=== PATIENT | male | born 1970 | race Caucasian/White ===

== ENCOUNTER 2018-01-03 11:10 | Outpatient (CLI) | payer OTHER, SELFPAY ==
[2018-01-06 10:05] LABS: PSA, Screening 1.1 ng/ml (0-2.5)
== END 2018-01-03 11:30 ==
PROVIDERS: PCP Family Medicine; Visit Provider Family Medicine
DX: Z12.5 Encounter for screening for malignant neoplasm of prostate (principal)
CPT/HCPCS: 36415; 84153

== ENCOUNTER 2018-12-29 07:00 | Outpatient (CLI) | payer OTHER, SELFPAY ==
[2018-12-29 13:36] LABS: BUN 18 mg/dL (7-18); CREATININE 1.01 mg/dL (0.70-1.30); Calculated LDL 110 mg/dL; Chloride 103 mmol/L (98-107); Cholesterol 182 mg/dL (50-200); Glucose 90 mg/dL (70-100); HDL Cholesterol 55 mg/dL (40-60); Potassium 4.8 mmol/L (3.5-5.1); Sodium 141 mmol/L (136-145); Triglyceride 88 mg/dL (30-150)
[2018-12-30 10:01] LABS: PSA, Screening 1.5 ng/ml (0-2.5)
== END 2018-12-29 07:20 ==
PROVIDERS: PCP Family Medicine
DX: Z00.00 Encounter for general adult medical examination without abnormal findings (principal); I10 Essential (primary) hypertension; Z80.42 Family history of malignant neoplasm of prostate; Z12.5 Encounter for screening for malignant neoplasm of prostate
CPT/HCPCS: 36415; 80048; 80061; 84153

== ENCOUNTER 2019-06-01 08:02 | Day surgery (SDC) | payer OTHER, SELFPAY ==
--- NOTE | 2019-06-01 06:46 | W.COLOREPORT ---
Date of service: 06/01/19 Time of Service: :30 Colonoscopy Report Date of procedure: 06/01/19 Pre-op diagnosis general: Colon Cancer Screening Post-op diagnosis procedure note: other (colorectal polyps) Procedure: Colonoscopy with polypectomy Surgeon: Amie Mayer Anesthesia proc note operative: other (General/ ASA 2/Kym Meyer CRNA ) Estimated blood loss (mL): 3 Pathology: other (Cecal polyp, transverse polyp x2, sigmoid polyp) Complications: None Disposition: same day Indications: 48 y/o male with history of anxiety presents for his first colonoscopy screening pre-op. He denies a family history of colon cancer. He denies any changes in bowel habits including bloody or black tarry stools, abdominal pain, diarrhea or constipation. He denies constitutional symptoms. Denies use of marijuana or any other recreational or illegal drugs. Risks, benefits and complications have been reviewed. Complications include but are not limited to bleeding, pain, perforation, missed small lesion/polyp, sore throat, aspiration and adverse reaction to the medications. Questions were entertained and answered to their satisfaction and they wished to proceed. No guarantees were given or implied. Prep: Miralax/Dulcolax Procedure Start Time: :30 Procedure End Time: :57 Retraction Time: 21 minutes Findings: 4 small polyps Procedure Description: After informed consent was obtained the patient was taken to the procedure room and placed in a left decubitous position. Monitors were applied and a time out was done. The patients name, date of , procedure, allergies to medications and metal in their body was reviewed. The patient was then sedated. Once sedated and comfortable a rectal exam was done. External exam was normal. Internal exam revealed a normal sphincter tone and no palpable masses. The prostate felt smooth. The scope was then introduced and retro-flexed. No internal hemorrhoids were identified. The scope was then advanced to the cecum without difficulty. The TI and appendiceal orifice were identified. The prep was adequate. The scope was then slowly retracted over 21 minutes back into the rectum. Polyps were removed with cold forceps in the cecum x1, Transverse colon x2 and sigmoid colon x1. There were no diverticula noted. The scope was removed and the patient was woken up and taken back to Same day surgery in stable condition. The patient tolerated the procedure well and there were no immediate complications. Follow up: The patient should follow up in 3-5 years unless they develop changes in bowel habits or other new gastrointestinal complaints.
--- NOTE | 2019-06-01 06:47 | W.PM.DSUDISC ---
Discharge Plan Disposition Patient Disposition: HOME Condition: Good Discharge Details Reason For Visit: SCREENING Attending Provider: Amie Mayer Primary Care Provider: Mohit Collins Home Meds and New Rx's Prescriptions: Continued triamcinolone acetonide [Nasacort] 55 mcg aerosol,spray 2 spray ARIC DAILY Qty: 50.7 RF: 3 triamcinolone acetonide 15 GM cream 1 cate Topical DAILY PRN Qty: 3 RF: 0 ascorbic acid (vitamin C) [Vitamin C] 500 MG tablet 500 mg PO DAILY RF: 0 CENTRUM TABLET 1 EACH tablet 1 tab PO DAILY RF: 0 fluocinonide 30 GM cream 1 cate Topical BID PRNQty: 30 RF: 1 gabapentin 300 MG capsule 300 mg PO TID PRN Qty: 90 RF: 4 clonazepam [Klonopin] 1 mg tablet 1 mg PO daily prn Qty: 90 RF: 1 Hold Instructions: Home Medication placed on hold at Doctor's office Discontinued polyethylene glycol 3350 17 gram/dose powder 238 g PO ONCE Qty: 238 RF: 0 bisacodyl [Dulcolax (bisacodyl)] 5 mg tablet,delayed release (DR/EC) 5 mg PO ONCE Qty: 4 RF: 0 Discharge Instructions Instructions: Colorectal Polyps (GEN) Additional Instructions: Findings: 4 polyps Follow up: 3-5 years Please call if you develop: fevers >101.5 Nausea or Vomiting Abdominal pain that is not transient DAY SURGERY UNIT POST ENDOSCOPY INSTRUCTIONS 1. Because there will be medication in your system for the next 24 hours, you may feel a little sleepy. Your coordination will be affected. Therefore: a. Do not drive or operate dangerous equipment for 24 hours. b. Do not drink alcohol beverages for 24 hours (not even beer). c. Plan to go home and rest for the day. 2. Generally there are no restrictions on your activity after a day or so has gone by, but you may feel a bit fatigued for a few days. 3 After you arrive home you may have a light meal and return to a normal diet as you can tolerate it without feeling sick to your stomach. 4. After surgery, you may feel pain or discomfort. This should be only transient, but if it persists please contact your doctor. 5. If there are any questions regarding the findings of your procedure, please feel free to contact your doctor. 6. If you are unable to contact your doctor with a problem, contact the [facility] at [phone]. 1. Continue all your regular medications unless directed otherwise. I understand the above instructions and have no questions. Signature of Patient or Responsible Adult Escort Date/Time Name of Responsible Adult Escort Signature of Nurse Date/Time Activity:: Activity as Tolerated Diet:: As Tolerated Discharge Orders Discharge Orders: Discharge Order (Routine); Ordered 06/01/19 Ordered By: Amie Mayer
[2019-06-01 08:15] VITALS: BP 100/70; PULSE 96; RESP 16; TEMP 36.5; O2SAT 97
[2019-06-01] MEDS: Lactated Ringers 1,000 ML 80 ML IV (08:38)
--- NOTE | 2019-06-01 09:37 | BOWEL_PTH ---
PATIENT: David Gunter LOC: [facility] U#:[id number] AGE/SX: 49/M ROOM: RE06/01/[address]: Amie Mayer MD : 1970 BED: DIS: 06/01/2019 SPEC #: [id number] RECD: 06/01/19 12:36 STATUS: ART RE #: [id number] BONNIE: 06/01/19 09:[address]: Amie Mayer DEPT: Surgical Specimen RECD BY: Vanesa Zuniga ENTERED: 06/01/19 12:37 SP TYPE: Bowel OTHR DR: Mohit Collins MD Tissues: 1 - BIOPSY BOWEL 2 - BIOPSY BOWEL 3 - BIOPSY BOWEL Procedures: GROSS AND MICRO LEVEL 4 Comments: [id number]
[2019-06-01 10:31] VITALS: BP 117/88; PULSE 71; RESP 16; TEMP 36.6; O2SAT 99
== END 2019-06-01 10:51 | disposition home or self-care (01) ==
LOC: SUR 08:04
PROVIDERS: PCP Family Medicine; Visit Provider Surgery
PROC: 0DJD8ZZ Inspection of Lower Intestinal Tract, Via Natural or Artificial Opening Endoscopic (ICD-10-PCS; CPT 45378; principal; 2019-06-01 09:15)
DX: Z12.11 Encounter for screening for malignant neoplasm of colon (principal); D12.0 Benign neoplasm of cecum; D12.3 Benign neoplasm of transverse colon; K63.5 Polyp of colon
CPT/HCPCS: 45380; 88305

== ENCOUNTER 2020-01-14 04:01 | Outpatient (CLI) | payer OTHER, SELFPAY ==
[2020-01-14 16:17] LABS: Anion Gap 5.8 mmol/L (3-11); BUN 17 mg/dL (7-18); CO2 29.2 mmol/L (21.0-32.0); CREATININE 1.05 mg/dL (0.70-1.30); Calcium 9.7 mg/dL (8.5-10.1); Chloride 103 mmol/L (98-107); Glucose 88 mg/dL (74-106); Potassium 4.5 mmol/L (3.5-5.1); Sodium 138 mmol/L (136-145)
[2020-01-14 22:53] LABS: PSA, Screening 1.5 ng/mL (0.0-3.5)
== END 2020-01-14 04:21 ==
DX: Z00.00 Encounter for general adult medical examination without abnormal findings (principal); Z13.228 Encounter for screening for other metabolic disorders; Z12.5 Encounter for screening for malignant neoplasm of prostate; Z80.42 Family history of malignant neoplasm of prostate
CPT/HCPCS: 36415; 80048; 84153

== ENCOUNTER 2020-02-05 17:08 | Outpatient (REF) | payer OTHER, SELFPAY ==
[2020-02-10 01:51] LABS: Patient Race White; SARS-CoV-2 RNA Undetected (Undetected); SARS-CoV-2 Specimen Source Nasal
== END 2020-02-05 17:28 ==
LOC: LBN 17:08
PROVIDERS: Visit Provider Nurse Practitioner Family
DX: J06.9 Acute upper respiratory infection, unspecified (principal)
CPT/HCPCS: U0003

== ENCOUNTER 2020-05-17 17:46 | Outpatient (REF) | payer OTHER, SELFPAY ==
[2020-05-19 11:32] LABS: COVID-19 RT-PCR UVMMC Result Negative (Negative)
== END 2020-05-17 17:47 | disposition home or self-care (01) ==
LOC: LBN 17:46
PROVIDERS: Visit Provider Physician Assistant
DX: Z20.828 Contact with and (suspected) exposure to other viral communicable diseases (principal)
CPT/HCPCS: U0003

== ENCOUNTER 2020-05-18 19:17 | Outpatient (CLI) | payer OTHER, SELFPAY ==
--- NOTE | 2020-05-18 10:30 | DI.RAD_ITS ---
EXAM: XR CHEST 2V PA LATERAL CLINICAL HISTORY: cough x two weeks r/o pneumonia, R05. TECHNIQUE: 2D digital imaging was performed. COMPARISON: No exams were available for comparison FINDINGS: Heart size is normal. The mediastinum is not widened. There is bilateral hyperinflation. No infiltrates nor pleural effusions. No pulmonary edema. No pn eumothorax. IMPRESSION: No acute pulmonary findings.Inflation noted. DATA REPOSITORY: RADIATION DOSE DELIVERED:
== END 2020-05-18 19:18 ==
LOC: DI 19:17
PROVIDERS: Visit Provider Physician Assistant
DX: R05 Cough (principal)
CPT/HCPCS: 71046

== ENCOUNTER 2021-01-10 08:01 | Outpatient (CLI) | payer OTHER, SELFPAY ==
[2021-01-10 12:37] LABS: ALT 25 U/L (16-63); AST 10 U/L (15-37); Albumin 4.3 g/dL (3.4-5.0); Alkaline Phosphatase 60 U/L (46-116); Anion Gap 7.1 mmol/L (3-11); BUN 13 mg/dL (7-18); Bilirubin, Total 0.5 mg/dL (0.2-1.0); CO2 30.9 mmol/L (21.0-32.0); Calcium 9.7 mg/dL (8.5-10.1); Chloride 104 mmol/L (98-107); Glucose 93 mg/dL (74-106); Potassium 4.6 mmol/L (3.5-5.1); Sodium 142 mmol/L (136-145); Total Protein 7.2 g/dL (6.4-8.2)
[2021-01-10 17:57] LABS: PSA, Screening 1.6 ng/mL (0.0-3.5)
== END 2021-01-10 08:02 | disposition home or self-care (01) ==
DX: Z00.00 Encounter for general adult medical examination without abnormal findings (principal); Z12.5 Encounter for screening for malignant neoplasm of prostate; Z80.42 Family history of malignant neoplasm of prostate
CPT/HCPCS: 36415; 80053; 84153

== ENCOUNTER 2022-11-19 02:43 | Outpatient (CLI) | payer OTHER, SELFPAY ==
[2022-11-19 16:52] LABS: ALT 24 U/L (16-63); AST 14 U/L (15-37); Alkaline Phosphatase 63 U/L (46-116); Anion Gap 10.3 mmol/L (3-11); BUN 18 mg/dL (7-18); Bilirubin, Total 0.6 mg/dL (0.2-1.0); CO2 26.7 mmol/L (21.0-32.0); CREATININE 1.1 mg/dL (0.70-1.30); Calcium 9.3 mg/dL (8.5-10.1); Calculated LDL 121 mg/dL (<100); Chloride 102 mmol/L (98-107); Cholesterol 193 mg/dL (<200); Estimated GFR 80.27 (mL/min/1.73m2); Glucose 90 mg/dL (74-106); HDL Cholesterol 49 mg/dL (40-60); Potassium 3.9 mmol/L (3.5-5.1); Sodium 139 mmol/L (136-145); Total Protein 7.2 g/dL (6.4-8.2); Triglyceride 116 mg/dL (<150)
[2022-11-19 22:31] LABS: PSA, Screening 1.5 ng/mL (<=3.5)
[2022-11-20 10:23] LABS: HIV-1/2 Ag & Ab Screen Negative (Negative)
[2022-11-20 10:43] LABS: Hepatitis C Ab w Rflx HCV PCR Negative (Negative)
== END 2022-11-19 02:44 | disposition home or self-care (01) ==
LOC: LBO 02:43
PROVIDERS: PCP Nurse Practitioner Family; Visit Provider Nurse Practitioner Family
DX: Z13.220 Encounter for screening for lipoid disorders (principal); Z11.59 Encounter for screening for other viral diseases; Z11.4 Encounter for screening for human immunodeficiency virus [HIV]; Z12.5 Encounter for screening for malignant neoplasm of prostate
CPT/HCPCS: 36415; 80053; 80061; 84153; 86803; 87389

== ENCOUNTER 2023-01-21 10:36 | Day surgery (SDC) | payer OTHER, SELFPAY ==
--- NOTE | 2023-01-20 18:53 | W.PM.DSUDISC ---
Date of service: 01/21/23 Time of Service: 12:28 Discharge Plan Disposition Patient Disposition: Home Condition: Good Discharge Details Reason For Visit: Screening colonoscop Attending Provider: Andrae Quinn Primary Care Provider: Darvin Austin Home Meds and New Rx's Prescriptions: Continued gabapentin 100 mg capsule See Rx Instructions PO TID PRN (Reason: imbalance) Qty: 180 5RF Rx Instructions: 100-200mg orally three times a day PRN; clonazepam 0.5 mg tablet 0.5 mg PO DAILY Qty: 90 1RF triamcinolone acetonide 15 GM cream 1 cate Topical DAILY PRN Qty: 3 Rx Instructions: APPLY DIRECTED ascorbic acid (vitamin C) [Vitamin C] 500 MG tablet 500 mg PO DAILY CENTRUM TABLET 1 EACH tablet 1 tab PO DAILY fluocinonide 0.05 % cream 1 applic Topical BID PRN (Reason: rash) Qty: 30 0RF Discontinued bisacodyl [Dulcolax (bisacodyl)] 5 mg tablet,delayed release (DR/EC) 5 mg PO ONCE Qty: 4 0RF Rx Instructions: Colonoscopy Bowel Prep- Per Instructions polyethylene glycol 3350 17 gram/dose powder 238 g PO ONCE Qty: 238 0RF Rx Instructions: Colonoscopy Bowel Prep- Per Instructions Discharge Instructions Instructions: Colorectal Polyps (GEN) Additional Instructions: David, we were able to complete your colonoscopy today without any difficulty. In total I found 3 polyps. They were all quite small. I removed them all completely. We will take a week or so for me to get the results of the polyp report, but once I have that I will be in touch with my recommendations for your next colonoscopy. 1. If tolerated, consume a soft, low fiber diet for 1-2 days. 2[address] Do not drive, drink alcohol, operate machinery, make critical decisions, or do activities that require coordination or balance for 24 hours. 3. Because air was put into your colon during the procedure, expelling air from your rectum (passing gas or farting) is normal. 4. You may not have a bowel movement for 1-3 days because of the colonoscopy prep. This is normal. 5. Go directly to the emergency room if you notice any of the following: Develop chills (warm to touch), or if you have a thermometer and your temperature is above 101 Difficulty breathing or difficultly swallowing Persistent vomiting Severe abdominal pain, other than gas cramps Severe chest pain Black, tarry stools Any bleeding ? exceeding one tablespoon 6. Call your physician if the site where your intravenous was started becomes red, swollen, painful, and warm to touch. 7. Your physician has reviewed your pre-procedure medications. Please continue to take those medications as previously ordered. You will be given specific information/education regarding any changes to your medications before leaving. Activity:: Activity as Tolerated Diet:: As Tolerated Discharge Orders Discharge Orders: Discharge Order (Routine); Ordered 01/20/23 Ordered By: Andrae Quinn DS: Diagnosis Discharge Diagnosis (1) Screen for colon cancer: Status: Acute Asessment and Plan: I will follow-up on polypectomy results
--- NOTE | 2023-01-20 18:54 | COLE_ITS ---
Date of service: 01/21/23 Time of Service: 12:29 Colonoscopy Report Date of procedure: 01/21/23 Pre-op diagnosis general: screening colonoscopy Post-op diagnosis procedure note: other (Colorectal polyps) Procedure: Colonoscopy with polypectomy Surgeon: Andrae Quinn Anesthesia Type: General:No Airway Estimated blood loss (mL): 10 Pathology: other (0.25 cm cecal polyp, 0.5 cm polyp at 60 cm, 0.25 cm polyp at 35 cm) Complications: None Disposition: same day Indications: David is 52 years old with a history of sessile serrated adenoma. he is here for his next screening colonoscopy Prep: Miralax/Dulcolax Procedure Start Time: 12:04 Procedure End Time: 12:18 Retraction Time: 11 Findings: 0.25 cm appendiceal polyp, 0.25 cm polyp at 35 cm, 0.5 cm polyp at 60 cm Procedure Description: After the induction of monitored anesthetic care, and with the patient in left lateral decubitus position, I began by performing an external anorectal exam.? Perineum and skin were normal, as was the anal verge.? There was no evidence of external hemorrhoids.? Next, I performed a digital rectal exam.? I did not appreciate any abnormal findings.? Next, I advanced a colonoscope into the rectal vault.? I performed retroflexion.? This appeared normal.? Using insufflation, I then advanced the colonoscope beyond the rectal folds and into the sigmoid colon before advancing towards the cecum.? The quality of the prep was excellent.? The scope was noted to be in the cecum by identification of the ileocecal valve and appendiceal orifice.? Just at the appendiceal orifice was a 0.25 cm polyp. It was slightly bilobed, but mostly sessile. I removed this with 2 bites using cold forceps. There was minimal bleeding. I then began withdrawing the colonoscope using repeated irrigation as necessary for full evaluation of the colonic mucosa. Around 60 cm from the anal verge I identified a 0.5 cm polyp. ?It appeared pedunculated in character. ?I was able to remove this with a cold forcep polypectomy. ?I examined the site, and there was minimal bleeding. ?Once this was completed, I continued to withdraw the scope and examine the remainder of the colonic mucosa. Similarly, around 35 cm from the anus was a 0.25 cm sessile polyp. This was also removed with cold forceps and minimal bleeding. ?Once the scope was withdrawn to the level of the rectum, great care was taken to examine portions of the rectal folds.? Finally, the scope was withdrawn and the patient was brought to the same-day surgery recovery unit as the anesthetic wore off. ?The findings and instructions were shared with the patient prior to discharge. [place] Bowel Prep [place] Bowel Prep Right Colon: 3 Left Colon: 3 Transverse Colon: 3 Total Score: 9
[2023-01-21 11:13] VITALS: BP 134/76; PULSE 91; RESP 20; TEMP 37; O2SAT 99
[2023-01-21] MEDS: Lactated Ringers 1,000 ML 80 ML IV (11:40)
--- NOTE | 2023-01-21 11:41 | ANES.PREOP_ITS ---
General Info Date of Service Date Performed: 01/21/23 Height: 5 ft 7 in Weight: 56.6 kg Body Mass Index (BMI): 19.5 Surgical Procedure: Operation Date: 01/21/23 12:05 Proposed Procedure Side Surgeon cheyenne Quinn MD Meds Allergies and Home Medications Allergies Allergy/AdvReac Type Severity Reaction Status Date / Time No Known Allergies Allergy Verified 01/21/23 11:08 Home Medication Medication Instructions Recorded Centrum Tablet 1 tab PO DAILY 07/31/12 ascorbic acid (vitamin C) 500 mg 500 mg PO DAILY 07/31/12 tablet (Vitamin C) triamcinolone acetonide 0.1 % 1 cate topical DAILY PRN ##3 07/31/12 topical cream gabapentin 100 mg capsule See Rx Instructions PO TID PRN 06/04/22 imbalance #180 caps fluocinonide 0.05 % topical cream 1 applic topical BID PRN rash #30 09/26/22 grams clonazepam 0.5 mg tablet 0.5 mg PO DAILY #90 tabs 11/14/22 Current Visit Medications: Current Medications Generic Name Dose Route Start Last Admin Trade Name Freq PRN Reason Stop Dose Admin Hyoscyamine Sulfate 0.125 mg 01/20/23 18:56 Hyoscyamine 0.125 Mg Sl/Oral/Chew SL 02/19/23 18:55 DIRECTED PRN Ringer's Solution 1,000 mls @ 80 mls/hr 01/21/23 06:00 01/21/23 11:40 IV 02/17/23 23:59 80 mls/hr INFUSION ADRYAN Administration IV Miscellaneous Supplies 1 each 01/21/23 06:00 Iv Access IV 02/17/23 23:59 DIRECTED ADRYAN Ondansetron HCl 4 mg 01/20/23 18:56 Ondansetron 4 Mg/2 Ml Vial IVP 02/19/23 18:55 Q4H PRN PRN Nausea / Vomiting Sodium Chloride 0 ml 01/21/23 06:00 Normal Saline Flush 10 Ml Syr IV 02/17/23 23:59 PRN PRN Sodium Chloride 0 ml 01/21/23 06:00 Normal Saline 10 Ml Vial IJ 02/17/23 23:59 DIRECTED PRN Sterile Water 0 ml 01/21/23 06:00 Water,Injection,Sterile 10 Ml Vial IJ 02/17/23 23:59 DIRECTED PRN PFSH Active Problems Active Problems: Problem Status Onset Code Screen for colon cancer Z12.11 Impacted cerumen, bilateral H61.23 Odynophagia R13.10 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 Peripheral vertigo 05/09/11 H81.399 History of open reduction and internal fixation (ORIF) procedure Z98.890 Allergic rhinitis J30.9 Sessile colonic polyp ~06/03/19 K63.5 Family history of prostate cancer Z80.42 Ataxia R27.0 Squamous cell skin cancer, face C44.320 Right ear impacted cerumen H61.21 Throat discomfort R07.0 Medical History Medical History Anxiety Cough IBS (irritable bowel syndrome) Surgical History Surgical History Hx of fracture of leg Fractured right leg w/ hardware placement ~ 2004 PROCEDURES NASAL SINUS REPAIR NEC, 2000 OPEN REDUCTION-FEMUR FX right S/P colonoscopy (~06/01/19) Tobacco Smoking/Tobacco Use Status: Never Passive smoking exposure: Yes Second hand exposure: Yes Alcohol Alcohol Intake: current Alcohol intake frequency: a few times a month Alcohol type: hard liquor Substance Use Substance use: Never Substance use type: does not use Counseling provided: none Details: alcohol: t-10 Vital Signs and Lab Results Vital Signs Most Recent Vital Signs in EMR: Most Recent Vital Signs Temp Pulse Resp BP Pulse Ox 37.0 C 91 H 20 134/76 99 01/21/23 11:13 01/21/23 11:13 01/21/23 11:13 01/21/23 11:13 01/21/23 11:13 Lab Results Blood Type / Crossmatch: No Data to Display Complete Blood Count: No Data to Display Complete Metabolic Panel: No Data to Display Liver Function Panel: No Data to Display Coagulation Panel: No Data to Display Cardiac Panel: No Data to Display Arterial Blood Gas: No Data to Display Venous Blood Gas: 2 No Data to Display Pancreas Panel: No Data to Display Thyroid Panel: No Data to Display Infectious Disease: No Data to Display Blood Cultures: No Data to Display Toxicology Panel: No Data to Display Anesthesia Assessment and Plan Anesthesia History Personal History: No History of Anesthesia Complications Family History: No Family History of Anesthesia Complications Exercise Tolerance Exercise Tolerance: Metabolic Equivalents>4 Pertinent Negatives Pertinent Negatives: No Symptoms of GERD, No Major Cardiovascular Symptoms or Complaints and No Major Pulmonary Symptoms or Complaints Cardiac & Pulmonary Exam Cardiac Exam: Normal S1/S2 Heart Sounds Pulmonary Exam: Clear Bilateral Breath Sounds Implantable Cardiac Device Does patient have a Pacemaker or an ICD?: No Airway Exam Known Difficult Airway: No Mallampati Class: 1 Mouth Opening: Normal (> 3cm) Thyromental Distance: Less than 3 cm Neck Range of Motion: Full ROM Neck Circumference: Normal Teeth Condition: Normal Dentition ASA Classification ASA Score: ASA 2 Emergency Case?: No NPO Status NPO Status: NPO Clears >2 hours, Solids >8 hours Anesthesia Plan Resuscitation Status: Full Code Anesthesia Technique: General Anesthesia Airway Planned: Natural Airway Monitors Used: Standard Monitors
[2023-01-21 11:45] VITALS: BMI 19.5
--- NOTE | 2023-01-21 12:09 | BOWEL_PTH ---
PATIENT: David Gunter LOC: [facility] U#:[id number] AGE/SX: 52/M ROOM: RE01/21/[address]: Andrae Quinn MD : 1970 BED: DIS: 01/21/2023 SPEC #: [id number] RECD: 01/21/23 12:45 STATUS: ART REQ #: [id number] BONNIE: 01/21/23 12:[address]: Andrae Quinn DEPT: Surgical Specimen RECD BY: Vanesa Zuniga ENTERED: 01/21/23 12:46 SP TYPE: Bowel OTHR DR: Darvin Corona DNP Tissues: 1 - BIOPSY BOWEL 2 - BIOPSY BOWEL 3 - BIOPSY BOWEL Procedures: GROSS AND MICRO LEVEL 4 Comments: [id number]
[2023-01-21 12:28] VITALS: BP 103/67; PULSE 72; RESP 16; O2SAT 98
--- NOTE | 2023-01-21 12:51 | W.ANESPOSTOP ---
Postoperative Evaluation Date, Time and Location Date Performed: 01/21/23 Time Performed: 12:52 Patient Location: Day Surgery Unit Vital Signs Most Recent Imported Vital Signs: Most Recent Vital Signs Temp Pulse Resp BP Pulse Ox 37.0 C 72 16 103/67 98 01/21/23 11:13 01/21/23 12:28 01/21/23 12:28 01/21/23 12:28 01/21/23 12:28 Pain Score Most Recent Pain Score: Most Recent Pain Score Pain Level 0 01/21/23 12:28 Assessment Mental Status: Awake (Alert & Oriented to Patient Baseline) Airway and Respiratory Function: Patent airway with normal (patient baseline) respiratory exam Cardiovascular Function: Hemodynamically Stable Hydration Status: Adequately Hydrated Nausea & Vomiting: No Nausea or Vomiting Pain: Pt. Denies Any Pain Peripheral Nerve Block: Patient did not receive a nerve block
[2023-01-21 13:00] VITALS: BP 118/72; PULSE 74; RESP 16; TEMP 36.7; O2SAT 100
== END 2023-01-21 10:37 | disposition home or self-care (01) ==
LOC: SUR 10:36
PROVIDERS: PCP Nurse Practitioner Family; Visit Provider Surgery
PROC: 0DJD8ZZ Inspection of Lower Intestinal Tract, Via Natural or Artificial Opening Endoscopic (ICD-10-PCS; CPT 45378; principal; 2023-01-21 12:00)
DX: Z12.11 Encounter for screening for malignant neoplasm of colon (principal); K63.5 Polyp of colon; D12.4 Benign neoplasm of descending colon
CPT/HCPCS: 45380; 88305; J2001

== ENCOUNTER 2025-02-08 08:23 | Outpatient (CLI) | payer BC, SELFPAY ==
[2025-02-08 21:37] LABS: PSA, Screening 1.2 ng/mL (<=3.5)
[2025-02-08 22:17] LABS: HBs Antibody, Quant 28.1 mIU/mL (See Note); Hepatitis B Surface Antigen Negative (Negative)
== END 2025-02-08 08:24 | disposition home or self-care (01) ==
PROVIDERS: PCP Nurse Practitioner Family; Visit Provider Nurse Practitioner Family
DX: Z11.59 Encounter for screening for other viral diseases (principal); Z12.5 Encounter for screening for malignant neoplasm of prostate; Z80.42 Family history of malignant neoplasm of prostate
CPT/HCPCS: 36415; 84153; 86704; 86706; 87340